=== PATIENT | male | born 1950 | race Caucasian/White ===

== ENCOUNTER 2017-12-24 15:16 | Emergency (ER) | payer OTHER, MEDICARE ==
[~2017-12-24 15:16] MED LIST: ALBUTEROL SULFAT3 M1 INH; ASPIRIN CHILDRE81 MG PO; ASPIRIN EC325 MG PO; ATIVAN0.5 MG PO; ATIVAN1 M1 PO; ATIVAN1 MG PO; AZITHROMYCIN250 MG PO; BUSPIRONE HCL15 MG PO; BUSPIRONE HCL30 MG PO; BUSPIRONE15 MG PO; CHLORPROMAZINE10 M1 PO; CHLORPROMAZINE10 MG PO; CLOPIDOGREL75 MG PO; COUMADIN 3 MG TA3 MG PO; ESZOPICLONE1 MG PO; FLEXERIL10 MG PO; FUROSEMIDE40 MG PO; LEADER NIC14 MG/24 H TOP; LEVAQUIN750 MG PO; LOPRESSOR 25MG25 MG PO; LORAZEPAM0.5 MG PO; METFORMIN HCL500 MG PO; METHADONE HYDROC5 MG PO; METOPROLOL TART50 MG PO; OLANZAPINE15 MG PO; PERCOCET 325 MG1 TA2 PO; PRAZOSIN HCL1 MG PO; PRAZOSIN HYDROCH1 MG PO; PREDNISONE 20MG20 MG PO; PREDNISONE10 MG PO; PREDNISONE20 MG PO; PRINIVIL 5MG5 MG PO; SIMVASTATIN40 MG PO; SPIRIVA 18 MCG18 MCG INH; VIBRAMYCIN 100100 MG PO; WARFARIN SODIUM3 MG PO; ZITHROMAX Z-PA250 M1 PO; [UNRECOGNIZED DRUG - OTHER] PO
--- NOTE | 2017-12-24 15:59 | ED CARDIAC/CP/PALPITATIONS ---
History of Present Illness General Chief Complaint: Chest Pain Stated Complaint: CHEST PAIN Source: patient Exam Limitations: no limitations Vital Signs & Intake/Output Vital Signs & Intake/Output Vital Signs Date Time Temp Pulse Resp B/P B/P Pulse O2 O2 Flow FiO2 Mean Ox Delivery Rate 12/24 1911 98.0 101 18 180/96 94 Room Air 12/24 1633 98.6 100 18 146/85 95 Room Air 12/24 1545 94 Room Air Room Air 12/24 1538 89 22 132/77 94 Room Air 12/24 1535 188 142/73 12/24 1532 188 14273 12/24 1529 188 24 14273 96 Room Air Room Air Allergies Coded Allergies: Opioids - Morphine Analogues (Severe, NAUSEA 05/27/15) codeine (GI UPSET 05/27/15) hydrocodone (GI UPSET 05/27/15) Reconcile Medications Albuterol Sulfate 3 ML NEB 3 ML INH PRN COPD (Reported) Aspirin (Children's Aspirin) 81 MG CTB 4 TAB PO DAILY HEART HEALTH (Reported) BUSPIRONE HCL (Buspirone HCl) 15 MG TAB 1 TAB PO TID MENTAL HEALTH (Reported) CHLORPROMAZINE HCL (Chlorpromazine HCl) 10 MG TAB 1 TAB PO TID MENTAL HEALTH (Reported) CLOPIDOGREL BISULFATE (Clopidogrel) 75 MG TAB 1 TAB PO DAILY BLOOD THINNER ( Reported) Doxycycline (Vibramycin 100 MG Cap) 100 MG CAP 1 TAB PO BID INFN Eszopiclone 1 MG TAB 1 TAB PO QPM SLEEP (Reported) Furosemide 40 MG TAB 1 TAB PO DAILY DIURETIC (Reported) Lisinopril (Prinivil) 5 MG TAB 1 TAB PO DAILY BP (Reported) LORazepam (Ativan) 1 MG TABLET 0.5 TAB PO 4 TIMES/DAY PRN ANXIETY Metformin Hydrochloride (Metformin HCl) 500 MG TAB 1 TAB PO BID DIABETES ( Reported) Metoprolol Tartrate (Lopressor) 25 MG TABLET 1 TAB PO BID BLOOD PRESSURE ( Reported) Nicotine (Nicotine Patch) 14 MG/24 HR TDM 1 PAT TOP DAILY SMOKING CESSATION ( Reported) Olanzapine 15 MG TAB 15 MG PO AT BEDTIME ANXIETY (Reported) Prazosin Hydrochloride 1 MG CAP 1 TAB PO TID ANXIETY (Reported) Simvastatin 40 MG TABLET 1 TAB PO QPM CHOLESTEROL (Reported) Tiotropium [place] (Spiriva) 18 MCG CAP.W.DEV 1 CAP INH DAILY COPD (Reported) Warfarin Sodium 3 MG TAB 1 TAB PO DAILY BLOOD THINNER (Reported) Triage Note: RECEIVED 67M IN WAITING ROOM PRESENTING VERY PALE, DYSPNIC, AND TAKEN DIRECTLY TO ROOM 3. PT REPORTS HE DEVELOPED DIZZINESS ONE HOUR KEEPER HEAD AND THEN DEVELOPED LEFT SIDED DEEP DULL CHEST PAIN, CONSTANT IN NATURE AND HAS RADIATING LEFT ARM NUMBNESS. PLACED ON MONITOR AND HR 190'S WITH REGULAR R-R INTERVAL AND P WAVES. APPEARS LETHARGIC, BUT AAOX3 AND ABLE TO FOLLOW COMMANDS. VS OTHERWISE STABLE. DR OBRIEN PAGED TO BEDSIDE WITH ROBERTA CLARK. IV ESTABLISHED. Triage Nurses Notes Reviewed? yes Onset: Gradual Duration: hour(s): Timing: single episode today Quality/Severity: aching, dull Location: left chest Radiation: no radiation HPI: 67-year-old male with history of CAD s/p MT, CHF, HTN, COPD, DM presents to ED complaining of left sided chest pain which began one hour prior to arrival. Patient states that he was at home when he began feeling dizzy and as though he may pass out. Patient began feeling left-sided chest pain. This did not resolve prompting his visit to the emergency department. Patient states that whenever he gets up to walk he feels as though he is going to pass out. Patient 's cupola liner helper is Dr. Enrique. Chest pain is described as left-sided, dull aching, no radiation. Patient reports baseline dyspnea related to his COPD. Patient notes numbness from right elbow down right hand. (Puja GRANADOS,Balbina Bose) Past History Travel History Traveled to [place] past 21 day No Medical History Any Pertinent Medical History? see below for history Neurological: NONE EENT: NONE Cardiovascular: CHF, hypertension, hyperlipidemia, myocardial infarction Respiratory: COPD Gastrointestinal: NONE Hepatic: NONE Renal: NONE Musculoskeletal: fracture, L ARM & COLLARBONE FX/SX Psychiatric: anxiety, schizo affective disorder, PTSD Endocrine: diabetes Blood Disorders: NONE Cancer(s): NONE EDUCATION COORDINATOR/Reproductive: NONE History of MRSA: No History of VRE: No History of CDIFF: No Surgical History Surgical History: L ARM FX/SX L COLLARBONE FX/SX Psychosocial History Who do you live with Mother Services at Home None What is your primary language Maltese Tobacco Use: Quit >30 days ago Family History Family History, If Any: Grandfather (premature CAD in 50s). MOTHER (CAD in 70s with angioplasty twice). FH: diabetes mellitus Hx Contributory? No (Balbina Linares) Review of Systems Review of Systems Constitutional: Reports: see HPI. EENTM: Reports: no symptoms. Respiratory: Reports: see HPI. Cardiovascular: Reports: see HPI. GI: Reports: no symptoms. Genitourinary: Reports: no symptoms. Musculoskeletal: Reports: no symptoms. Skin: Reports: no symptoms. Neurological/Psychological: Reports: see HPI. Hematologic/Endocrine: Reports: no symptoms. Immunologic/Allergic: Reports: no symptoms. All Other Systems: Reviewed and Negative (Balbina Linares) Physical Exam Physical Exam General Appearance: well developed/nourished, no apparent distress, alert, awake Head: atraumatic, normal appearance Eyes: Bilateral: normal appearance. Ears, Nose, Throat: hearing grossly normal Neck: normal inspection, supple, full range of motion Respiratory: no respiratory distress, bilateral mild wheezing Cardiovascular: tachycardia Peripheral Pulses: 2+ radial (R), 2+ radial (L) Gastrointestinal: normal bowel sounds, soft, non-tender, no organomegaly Back: normal inspection, normal range of motion Extremities: normal inspection, normal range of motion, no edema Neurologic/Psych: awake, alert, oriented x 3 Skin: intact, normal color, warm/dry Core Measures ACS in differential dx? Yes CVA/TIA Diagnosis No Sepsis Present: No Sepsis Focused Exam Completed? No (Balbina Linares) Progress Differential Diagnosis: AMI, aortic dissection, atrial fibrillation, CHF/pulm edema, hyperkalemia, myocarditis, pericarditis, pneumonia, pneumothorax, PSVT, pulmonary embolism, unstable angina Plan of Care: Orders Procedure Date/time Status Heart Healthy Diet 12/24 D Active TROPONIN LEVEL 12/24 1900 Complete EKG 12/24 1900 Active EKG 12/24 1533 Active Add-on Test (ER Only) 12/24 1528 Active TROPONIN LEVEL 12/24 1521 Complete PARTIAL THROMBOPLASTIN TIME 12/24 1521 Complete PROTHROMBIN TIME 12/24 1521 Complete MAGNESIUM 12/24 1521 Complete COMPREHENSIVE METABOLIC PANEL 12/24 1521 Complete CBC WITHOUT DIFFERENTIAL 12/24 1521 Complete EKG 12/24 1518 Active Laboratory Tests 12/24/17 1903: Troponin I < 0.01 12/24/17 1632: Anion Gap 7, Estimated GFR > 60, BUN/Creatinine Ratio 14.3, Glucose 116 H, Calcium 8.5, Magnesium 1.7, Total Bilirubin 0.4, AST 20, ALT 31, Alkaline Phosphatase 54, Troponin I < 0.01, Total Protein 6.8, Albumin 3.8, Globulin 3.0, Albumin/Globulin Ratio 1.3 12/24/17 1547: PT 24.4 H, INR 2.22 H, APTT 50 H, CBC w Diff NO MAN DIFF REQ, RBC 4.96, MCV 89.2, MCH 29.5, MCHC 33.1, RDW 13.8, MPV 8.5, Gran % 71.8, Lymphocytes % 18.4 L , Monocytes % 6.4, Eosinophils % 3.1, Basophils % 0.3, Absolute Granulocytes 7.8 H, Absolute Lymphocytes 2.0, Absolute Monocytes 0.7 H, Absolute Eosinophils 0.3, Absolute Basophils 0 Patient arrives with heart rate in 180s with left-sided chest pain. Patient was seen and evaluated by myself and Dr. Obrien. Tachycardia is regular in appearance, appears to be SVT. Patient given adenosine 6 mg without change in heart rate. Patient then given 10 mg Cardizem, within 1 minute patient's heart rate improved to 80s-90s. Heart rate now is in sinus rhythm. Repeat EKG shows sinus rhythm, stable compared to the patient's previous EKG from 2014. Following heart rate normalization the patient's symptoms have resolved. Spoke with Dr. Enrique regarding this patient's presentation. He agrees that findings are most consistent with SVT. He states that if patient remains stable and has negative cardiac markers he can follow up with the patient in his office. He states that the patient is not on current rate control to begin Cardizem 60 mg twice a day. Initial troponin enzyme negative. Repeat EKG and troponin are pending. PAtient's resovled symptoms are most likey related to his SVT rather than cardiac ishemia/ ACS. Patient is currently on metoprolol [address] Obrien, will increase dose to 50mg qAM, 25mg qHS. The patient was signed out to Dr. Obrien pending repeat EKG and troponin. Diagnostic Imaging: Viewed by Me: Radiology Read. Discussed w/RAD: Radiology Read. CXR Impression: PATIENT: SUSANA CRENSHAW PRESENT AGE: 67 PATIENT ACCOUNT NO: [id number] : 52 LOCATION: [facility] ORDERING PHYSICIAN: Balbina GRANADOS SERVICE DATE: 12/24/17 EXAM TYPE: RAD - XRY-PORTABLE CHEST XRAY EXAMINATION: XR PORTABLE CHEST CLINICAL INFORMATION: Chest pain. COMPARISON: Chest x-ray 12/28/2014. TECHNIQUE: Portable 75 degree semiupright view of the chest was obtained. FINDINGS: The lung blue are moderately well-expanded on the current study. They are well-aerated, and there is no focal consolidation. The linear opacities at the bases have decreased. There is mild stable cardiomegaly. The aortic arch is unfolded. The central pulmonary vasculature appears normal. There are no pleural effusions. A wire ring is noted around the mid left clavicle, unchanged. There are no acute osseous findings. IMPRESSION: 1. There are no acute cardiopulmonary findings. 2. There is mild stable cardiomegaly. DICTATED BY: Carlos Burrows MD DATE/TIME DICTATED:12/24/171622 BOND WRITER:ALYSSA DATE/TIME TRANSCRIBED:1622 CONFIDENTIAL, DO NOT COPY WITHOUT APPROPRIATE AUTHORIZATION. < Electronically signed in Other Vendor System> SIGNED BY: Carlos Burrows MD 1630 Initial ED EKG: tachycardia rate 189, regular rate likely SVT Prior EKG: changed Repeat EKG: changed (sinus rhythm rate 95bpm) Hand-Off Endorsed To: Keyur Obrien DO Endorsed Time: 1731 Pending: EKG, labs (Puja GRANADOS,Balbina Bose) Departure Departure Disposition: HOME OR SELF CARE Condition: Stable Clinical Impression Primary Impression: Supraventricular tachycardia Secondary Impressions: Chest pain Qualifiers: Chest pain type: unspecified Qualified Code: R07.9 - Chest pain, unspecified Referrals: Prabhu Cooper MD (PCP/Family) Additional Instructions: Call Dr. Enrique and follow up at his office neck week. Increase your metoprolol to 2 tablets in the morning and one tablet at night. Return if you have any worsening symptoms or concerns including chest pain, shortness of breath, abdominal pain, back pain, fainting or feeling faint, or other concerning symptoms. Please note that there might be incidental findings in your evaluation that are unrelated to the current emergency department visit. Please notify your primary care doctor about this emergency department visit in order to obtain and review all of the testing performed so that these incidental findings can be monitored as needed. If you had an x-ray performed, please understand that some fractures may not be seen on the initial set of x-rays. If your symptoms persist you might need a repeat set of x-rays to check for such a fracture. If you had a laceration evaluated, please understand that foreign bodies such as glass or wood may not be visible to the naked eye or on plain x-rays. If the wound becomes red, swollen, increasingly more painful or if there is any drainage from the wound, please have it reevaluated by a physician for the possibility of a retained foreign body. If you're unable to follow up as outlined in the discharge instructions please return to the emergency department. Thank you for choosing the [facility] Emergency Department for your care. It was a pleasure to serve you today. Departure Forms: Customer Survey General Discharge Information (Puja GRANADOS,Balbina Bose) Departure Comments 12/24/17 7:46 PM I saw and personally examined the patient and I agree with the PAs evaluation. 67-year-old man presented to the emergency department with chest pain and diaphoresis. He was found to be in SVT. He received adenosine without relief. 10 mg of Cardizem IV. He immediately went into sinus rhythm and became asymptomatic. Repeat EKG was unchanged from old. Troponin was negative. The case was discussed with the on-call cupola liner helper Dr. Enrique. He is in agreement with the plan. We'll monitor the patient, repeat troponin and EKG, if he remains asymptomatic he will follow-up with the cupola liner helper this week. . The patient was signed out to Dr. Galaviz at 7 PM to follow the repeat troponin, the repeat EKG was unchanged. (Keyur Obrien DO) Departure Comments 12/24/17, 19:58pm... second troponin negative... he is feeling well and feels comfortable going home... his metroprolol will be increased from 1 bid to 2 in AM, 1 in pm.... he expresses understanding of this plan and will follow up with his cupola liner helper on wednesday. (Guillaume CESPEDES,Jong Adams) Critical Care Note Critical Care Note Critical Care Time: non-applicable (Puja GRANADOS,Balbina Bose)
[2017-12-24 16:13] LABS: ABSOLUTE BASOPHIL COUNT 0 /CUMM (0.0-0.2); ABSOLUTE EOSINOPHIL COUNT 0.3 /CUMM (0.0-0.7); ABSOLUTE GRANULOCYTE CT 7.8 /CUMM (1.4-6.5); ABSOLUTE MONOCYTE COUNT 0.7 /CUMM (0.10-0.60); BASOPHIL % 0.3 % (0.0-2.0); EOSINOPHIL % 3.1 % (0-5); GRANULOCYTE % 71.8 % (42.2-75.2); HEMATOCRIT 44.2 % (42-52); MEAN CORPUSCULAR HGB 29.5 PG (27.0-31.0); MEAN CORPUSCULAR HGB CONC 33.1 G/DL (33.0-37.0); MEAN CORPUSCULAR VOLUME 89.2 FL (80.0-94.0); MEAN PLATELET VOLUME 8.5 FL (7.4-10.4); PLATELET COUNT 376 /CUMM (130-400); RBC DISTRIBUTION WIDTH 13.8 % (11.5-14.5); RED BLOOD CELL CT 4.96 /CUMM (4.70-6.10); WHITE BLOOD CELL COUNT 10.9 /CUMM (4.8-10.8)
--- NOTE | 2017-12-24 16:30 | RADIOLOGY REPORT ---
EXAMINATION: XR PORTABLE CHEST CLINICAL INFORMATION: Chest pain. COMPARISON: Chest x-ray 12/28/2014. TECHNIQUE: Portable 75 degree semiupright view of the chest was obtained. FINDINGS: The lung blue are moderately well-expanded on the current study. They are well-aerated, and there is no focal consolidation. The linear opacities at the bases have decreased. There is mild stable cardiomegaly. The aortic arch is unfolded. The central pulmonary vasculature appears normal. There are no pleural effusions. A wire ring is noted around the mid left clavicle, unchanged. There are no acute osseous findings. IMPRESSION: 1. There are no acute cardiopulmonary findings. 2. There is mild stable cardiomegaly.
[2017-12-24 16:39] LABS: PT 24.4 SEC (9.4-12.5); PTT 50 SEC (25-37)
[2017-12-24 20:06] VITALS: BP 138/99
== END 2017-12-24 20:07 ==
LOC: ERH 15:16
PROVIDERS: Physician Assistant
DX: I47.1 Supraventricular tachycardia (principal); R07.9 Chest pain, unspecified; I50.9 Heart failure, unspecified; I10 Essential (primary) hypertension; E78.5 Hyperlipidemia, unspecified; J44.9 Chronic obstructive pulmonary disease, unspecified; F41.9 Anxiety disorder, unspecified
CPT/HCPCS: 71045; 93005; 93010; 96374; 96375; J0153